=== PATIENT | female | born 1940 | race Caucasian/White ===

== ENCOUNTER 2019-09-07 09:43 | Day surgery (SDC) | payer MEDICARE, OTHER ==
[~2019-09-07] VITALS: Ht 152.4 cm; Wt 110.0 kg
[~2019-09-07 09:43] MED LIST: BAYER BACK & B1 EACH PO; Boniva150 MG PO; CALCAVITD PO; CHOL10002 PO; Fish Oil300 MG PO; LISINOPRIL/HCTZ PO; Mirapex0.25 MG PO; Mirapex0.5 MG PO; Multiple Vitam1 EAC1 PO; Omeprazole20 M1 PO; ZESTORETIC 20-121 EA PO
== END 2019-09-07 12:28 | disposition home or self-care (01) ==
LOC: ORSCSDS 09:43
PROVIDERS: Surgery
PROC: 0DJD8ZZ Inspection of Lower Intestinal Tract, Via Natural or Artificial Opening Endoscopic (ICD-10-PCS; principal; 2019-09-07 11:00)
DX: Z12.11 Encounter for screening for malignant neoplasm of colon (principal); Z86.010 Personal history of colon polyps; I10 Essential (primary) hypertension; K21.9 Gastro-esophageal reflux disease without esophagitis; E66.9 Obesity, unspecified; Z68.42 Body mass index [BMI] 45.0-49.9, adult; Z79.899 Other long term (current) drug therapy
CPT/HCPCS: J2704; J7120

== ENCOUNTER 2020-10-20 09:28 | Day surgery (SDC) | payer MEDICARE, OTHER ==
[~2020-10-20] VITALS: Ht 152.4 cm; Wt 100.8 kg
[~2020-10-20 09:28] MED LIST changes: +CALCIUM PO; +Percocet 5-3251 EACH PO; +VITAMIN D310 MC4 PO
--- NOTE | 2020-10-20 10:56 | NUR ---
Surgical site prepped with 2% Chlorhexidine cloth wipe. History, Chart, Medications and Allergies reviewed before start of procedure.Lungs clear T/O to Auscultation. Patient confirms NPO status and agrees with scheduled surgery. Patient reports completing Chlorhexadine shower X2 prior to admission to hospital. TOOK B/P MED THIS AM. PT STATES THAT DR ACOSTA IS AWARE OF EDEMA IN BLE.
--- NOTE | 2020-10-20 15:15 | NUR ---
PT TO ROOM ON OWN BED, A/0 X 4, PLEASANT/COOPERARTIVE, DENIES PAIN, DENIES N/V, PROVIDED WITH PO INTAKE/FLUIDS, ORIENTED TO ROOM/CALL LIGHT. POSTOP VS COMMENCED AND STABLE. PT IS UNABLE TO WIGGLE TOES/FEET, SENSATION TO l2-3
--- NOTE | 2020-10-20 16:25 | NUR ---
DAUGHTER/THERAPY CNA PER DIEM IN ROOM WITH PT PT IS ABLE TO WIGGLE TOES
--- NOTE | 2020-10-20 17:03 | NUR ---
THIS RN BEEN GIVEN REPORT AND IS ASSUMING CARE OF PT AT THIS TIME.
--- NOTE | 2020-10-21 03:32 | NUR ---
SHIFT SUMMARY: POD 1 RIGHT KNEE REPAIR PATIENT IS ALERT AND ORIENTED X4. VS ARE WNL AND IS ON RA. PAIN IS CONTROLLED WITH 1 OXYCODONE WELL SCHEDULED TYLENOL AND TORADOL. SHE WAS ABLE TO AMBULATE IN THE HALLWAY BEFORE BED. SHE USED A FWW AND GAIT BELT TO AMBULATE. SHE IS TOLERATING PO INTAKE. SHE HAS VOIDED AND HAS PASSED GAS. SHE USES THE CALL LIGHT APPROPRIATELY. PATIENT IS CURRENTLY LAYING DOWN WITH HER HEADPHONES ON AND EYES ARE CLOSED. RESPIPRATIONS ARE EVEN AND EQUAL. CALL LIGHT IS WITHIN REACH. SHE IS A PLEASURE TO TAKE CARE OF. THE PLAN IS TO HAVE PT LATER TODAY AND POSSIBLY DISCHARGE TO SNF.
[2020-10-21 04:58] LABS: BASOPHILS ABSOLUTE AUTO 0.01 K/mm3 (0.00-0.23); BASOPHILS PERCENT AUTO 0 % (0-2); EOSINOPHILS ABSOLUTE AUTO 0.05 K/mm3 (0.00-0.68); EOSINOPHILS PERCENT AUTO 1 % (0-6); Hematocrit 30.3 % (33.0-51.0); IMMATURE GRAN ABSOLUTE AUTO 0.02 K/mm3 (0.00-0.10); IMMATURE GRAN PERCENT AUTO 0 % (0-1); LYMPHOCYTES ABSOLUTE AUTO 1.24 K/mm3 (0.84-5.20); LYMPHOCYTES PERCENT AUTO 15 % (21-46); MONOCYTES ABSOLUTE AUTO 0.81 K/mm3 (0.16-1.47); MONOCYTES PERCENT AUTO 10 % (4-13); Mean Corpuscular HGB 29.9 pg (26.0-34.0); Mean Corpuscular Volume 91 fL (80-100); Mean Platelet Volume 9.9 fL (9.1-12.4); NEUTROPHILS ABSOLUTE AUTO 6.06 K/mm3 (1.96-9.15); NEUTROPHILS PERCENT AUTO 74 % (41-73); Platelet Count 239 K/mm3 (150-400); RDW Coefficient Variation 12.6 % (11.7-14.2); RDW Standard Deviation 41.6 fL (35.1-46.3); Red Blood Cell Count 3.34 M/mm3 (3.80-5.20); White Blood Cell Count 8.19 K/mm3 (4.00-11.30)
[2020-10-21 05:30] LABS: Calcium, Blood 8.7 mg/dL (8.5-10.1); Creatinine, Blood 1.31 mg/dL (0.40-1.00); Magnesium, Blood 1.9 mg/dL (1.6-2.4); Potassium, Blood 4.4 mmol/L (3.5-5.5)
--- NOTE | 2020-10-21 08:16 | NUR ---
MONICA HERE TO SEE PT. REPORTS TO HAVE PT GO HOME WITH KEISHA WRAP AND SEND LARGE AQUACELL'S WITH PT. REPORTS TO HAVE PT TAKE OFF KEISHA WRAP DRESSING IN 2-[address] AQUACELL DRESSING[address]
[2020-10-21] MEDS ORDERED: ACET500 PO (08:54)
[2020-10-21] MEDS ORDERED: ROXICODONE5 MG PO (08:55)
[2020-10-21] MEDS ORDERED: ASPIR 8181 M1 PO (08:55)
--- NOTE | 2020-10-21 10:43 | NUR ---
10/21/20 1043 Lynsey Saldaña VERIFICATIONS: EDIT CHART.
--- NOTE | 2020-10-21 11:11 | NUR ---
DISCHARGE: PT EATING AND DRINKING, VOIDING, PASSING GAS. PT REPORTS PAIN TOLERABLE ON PO PAIN MEDICATION. PT CLEARED BY THERAPY TO GO HOME. PT REPORTS HAVING APPR EQUIP AT HOME. PT/FAMILY REPORTS UNDERSTANDING OF DISCHARGE INSTRUCTIONS. PT SENT WITH DRESSING SUPPLIES AND JENNIFER HOSE. PT SENT WITH BELONGINGS, PAPERWORK INCLUDING SCRIPT WELL ICE MACHINE. PT FAMILY GIVING PT RIDE HOME.
== END 2020-10-21 11:23 | disposition home or self-care (01) ==
LOC: ORSCMMR 09:28 → ORD 13:15 → ORSCMMR 13:15 → SURS 15:21 → ORSCMMR 15:21 → SURS 10-21 11:23
PROVIDERS: Orthopaedic Surgery
PROC: 0SRC0JA Replacement of Right Knee Joint with Synthetic Substitute, Uncemented, Open Approach (ICD-10-PCS; principal; 2020-10-20 13:15)
DX: M17.11 Unilateral primary osteoarthritis, right knee (principal); I10 Essential (primary) hypertension; K21.9 Gastro-esophageal reflux disease without esophagitis; E78.00 Pure hypercholesterolemia, unspecified; E66.01 Morbid (severe) obesity due to excess calories; Z68.41 Body mass index [BMI] 40.0-44.9, adult; Z79.899 Other long term (current) drug therapy
CPT/HCPCS: 36415; 73560-RT; 80048; 83735; 85025; 88300; 97110; 97116; 97162; 97530; A9270; C1776; J0171; J0690; J0735; J1100; J1885; J2250; J2405; J2704; J2795; J3010; J7120

== ENCOUNTER 2021-06-01 11:07 | Day surgery (SDC) | payer MEDICARE, OTHER ==
[~2021-06-01] VITALS: Ht 152.4 cm; Wt 92.8 kg
[~2021-06-01 11:07] MED LIST changes: +ACET500 PO; +ASPIR 8181 M1 PO; +ROXICODONE5 MG PO
--- NOTE | 2021-06-01 18:58 | NUR ---
PT ARRIVED TO THE FLOOR AT APPROX 1800. A/OX4. VITALS TAKEN. AQUACELS X2 C/D/I. PAIN BEING MANAGED PER EMAR. TOLERATING PO INTAKE. WILL REPORT TO ONCOMING RN.
[2021-06-02 04:42] LABS: BASOPHILS ABSOLUTE AUTO 0.03 K/mm3 (0.00-0.23); BASOPHILS PERCENT AUTO 0 % (0-2); EOSINOPHILS ABSOLUTE AUTO 0.01 K/mm3 (0.00-0.68); EOSINOPHILS PERCENT AUTO 0 % (0-6); Hematocrit 33.9 % (33.0-51.0); Hemoglobin 11.2 g/dL (11.5-16.0); IMMATURE GRAN ABSOLUTE AUTO 0.02 K/mm3 (0.00-0.10); IMMATURE GRAN PERCENT AUTO 0 % (0-1); LYMPHOCYTES ABSOLUTE AUTO 1.06 K/mm3 (0.84-5.20); LYMPHOCYTES PERCENT AUTO 11 % (21-46); MONOCYTES ABSOLUTE AUTO 0.89 K/mm3 (0.16-1.47); MONOCYTES PERCENT AUTO 9 % (4-13); Mean Corpuscular HGB 29.6 pg (26.0-34.0); Mean Corpuscular Volume 90 fL (80-100); Mean Platelet Volume 9.7 fL (9.1-12.4); NEUTROPHILS ABSOLUTE AUTO 8.09 K/mm3 (1.96-9.15); NEUTROPHILS PERCENT AUTO 80 % (41-73); Platelet Count 213 K/mm3 (150-400); RDW Coefficient Variation 14.3 % (11.7-14.2); RDW Standard Deviation 47.3 fL (35.1-46.3); Red Blood Cell Count 3.78 M/mm3 (3.80-5.20)
--- NOTE | 2021-06-02 04:50 | NUR ---
SHIFT SUMMARY PT A&O X4 AND IN PLEASENT MOOD T/O SHIFT. PT RESTED W/ DISKMAN PLAYING IN EARS MOST OF THE NIGHT. CRYOTHERAPY IN PLACE. AQUACEL CDI. CALL LIGHT W/IN REACH. VOIDING WELL. GAIT IS STEADY, THOUGH AMBULATION IS SLOW. STRONG PPP BILATERAL. TOLERATING PO INTAKE WELL
[2021-06-02 05:07] LABS: Bun/Creatinine Ratio 32.9 (12.0-20.0); Calcium, Blood 8.6 mg/dL (8.5-10.1); Creatinine, Blood 1.43 mg/dL (0.40-1.00); Magnesium, Blood 1.8 mg/dL (1.6-2.4); Potassium, Blood 4.5 mmol/L (3.5-5.5)
[2021-06-02] MEDS ORDERED: ACET500 PO (08:29)
[2021-06-02] MEDS ORDERED: OXYC5 PO (08:30)
[2021-06-02] MEDS ORDERED: ASPI81CH PO (08:30)
--- NOTE | 2021-06-02 09:35 | NUR ---
DISCHARGE SUMMARY L TKA POD1, KYLAH C/D/I. PT VOIDING AND TOLERATING PO INTAKE. AMBULATED AND WORKED WITH PHYSICAL THERAPY THIS AM. UP IN CHAIR. PO PAIN MEDS MANAGING PAIN. DC'D IV, WNL. WRITTEN AND VERBAL DISCHARGE INSTRUCTIONS GIVEN, PT VERBALIZED UNDERSTANDING. WRITTEN PRESCRIPTION GIVEN TO PT. POLAR PACK, & BELONGINGS GATHERED AND TAKEN OUT WITH PT. PT WHEELED OUT TO VEHICLE TO DISCHARE WITH DAUGHTER.
--- NOTE | 2021-06-02 12:49 | NUR ---
06/02/21 1249 Lynsey Saldaña VERIFICATIONS: EDIT CHART.
== END 2021-06-02 09:32 | disposition home or self-care (01) ==
LOC: ORSCMMR 11:07 → ORD 14:00 → ORSCMMR 14:00 → SURS 18:18 → ORSCMMR 06-02 09:32 → SURS 06-02 09:32
PROVIDERS: Orthopaedic Surgery
PROC: 8E0Y0CZ Robotic Assisted Procedure of Lower Extremity, Open Approach (ICD-10-PCS; principal; 2021-06-01 14:00)
PROC: 0SRD0JA Replacement of Left Knee Joint with Synthetic Substitute, Uncemented, Open Approach (ICD-10-PCS; principal; 2021-06-01 14:00)
DX: M17.12 Unilateral primary osteoarthritis, left knee (principal); I10 Essential (primary) hypertension; E78.5 Hyperlipidemia, unspecified; J45.909 Unspecified asthma, uncomplicated; E66.01 Morbid (severe) obesity due to excess calories; Z68.41 Body mass index [BMI] 40.0-44.9, adult; Z79.899 Other long term (current) drug therapy
CPT/HCPCS: 27447; S2900; 36415; 73560-LT; 80048; 83735; 85025; 97110; 97116; 97161; A9270; C1776; J0171; J0690; J0735; J1100; J1885; J2250; J2370; J2405; J2704; J2795; J3010; J7120

== ENCOUNTER 2021-08-26 09:51 | Day surgery (SDC) | payer MEDICARE, OTHER ==
[~2021-08-26] VITALS: Ht 152.4 cm; Wt 95.5 kg
[~2021-08-26 09:51] MED LIST changes: +ASPI81CH PO; +OXYC5 PO
--- NOTE | 2021-08-26 11:39 | NUR ---
08/26/21 1139 [facility] LATE ENTRY: TIMEOUT AND SITE CHECK DONE WITH DR ACOSTA. DR ACOSTA INJECTS 10CC LIDOCAINE 1% WITH EPI 1:100,000. DR ARCHIBALD AT BEDSIDE DURING LOCAL WELL.
== END 2021-08-26 12:31 | disposition home or self-care (01) ==
LOC: ORSCSDS 09:51
PROVIDERS: Orthopaedic Surgery
PROC: 01N54ZZ Release Median Nerve, Percutaneous Endoscopic Approach (ICD-10-PCS; principal; 2021-08-26 11:45)
DX: G56.01 Carpal tunnel syndrome, right upper limb (principal); I10 Essential (primary) hypertension; E66.9 Obesity, unspecified; Z68.35 Body mass index [BMI] 35.0-35.9, adult; E78.5 Hyperlipidemia, unspecified; Z79.899 Other long term (current) drug therapy
CPT/HCPCS: J2250; J3010

== ENCOUNTER → 2022-07-21 | Outpatient (CLI) | payer MEDICARE, OTHER ==
[2022-07-21 12:17] LABS: BASOPHILS ABSOLUTE AUTO 0.04 K/mm3 (0.00-0.23); BASOPHILS PERCENT AUTO 1 % (0-2); EOSINOPHILS ABSOLUTE AUTO 0.22 K/mm3 (0.00-0.68); EOSINOPHILS PERCENT AUTO 3 % (0-6); Hematocrit 36.6 % (33.0-51.0); Hemoglobin 11.9 g/dL (11.5-16.0); IMMATURE GRAN ABSOLUTE AUTO 0.01 K/mm3 (0.00-0.10); IMMATURE GRAN PERCENT AUTO 0 % (0-1); LYMPHOCYTES ABSOLUTE AUTO 1.93 K/mm3 (0.84-5.20); LYMPHOCYTES PERCENT AUTO 28 % (21-46); MONOCYTES ABSOLUTE AUTO 0.69 K/mm3 (0.16-1.47); MONOCYTES PERCENT AUTO 10 % (4-13); Mean Corpuscular HGB 29.5 pg (26.0-34.0); Mean Corpuscular HGB Conc 32.5 g/dL (31.5-36.5); Mean Corpuscular Volume 91 fL (80-100); Mean Platelet Volume 9.8 fL (9.1-12.4); NEUTROPHILS ABSOLUTE AUTO 3.94 K/mm3 (1.96-9.15); NEUTROPHILS PERCENT AUTO 58 % (41-73); Platelet Count 255 K/mm3 (150-400); RDW Coefficient Variation 13.3 % (11.7-14.2); RDW Standard Deviation 44.4 fL (35.1-46.3); Red Blood Cell Count 4.04 M/mm3 (3.80-5.20); White Blood Cell Count 6.83 K/mm3 (4.00-11.30)
[2022-07-21 12:38] LABS: Albumin, Blood 3.8 g/dL (3.4-5.0); Anion Gap 9 mmol/L (6-16); Blood Urea Nitrogen 46 mg/dL (8-24); Bun/Creatinine Ratio 30.3 (12.0-20.0); CO2, Blood 23 mmol/L (21-32); Chloride, Blood 107 mmol/L (98-108); Creatinine, Blood 1.52 mg/dL (0.40-1.00); Glomerular Filtration Rate 34 (60-); Glucose, Blood 114 mg/dL (70-99); Phosphorus, Blood 3.3 mg/dL (2.5-4.9); Potassium, Blood 4.3 mmol/L (3.5-5.5); Sodium, Blood 139 mmol/L (136-145)
[2022-07-21 13:05] LABS: Creatinine, Urine Random 88.4 mg/dL (27.00-270.00); Protein, Urine Random 20.1 mg/dL (0.0-11.9); Protein/Creat Ratio, Ur Random 0.2
== END | disposition home or self-care (01) ==
LOC: LAB SHORT 10:48 → LAB 10:48
PROVIDERS: Internal Medicine Nephrology
DX: N18.31 Chronic kidney disease, stage 3a (principal)
CPT/HCPCS: 36415; 80069; 82570; 84156; 85025